=== PATIENT | female | born 1985 | race Caucasian/White ===

== ENCOUNTER 2017-02-14 13:16 | Emergency (ER) | payer SELFPAY ==
[2017-02-14 13:32] VITALS: BP 132/74; PULSE 69; RESP 16; O2SAT 97
--- NOTE | 2017-02-14 13:58 | ED PDOC ---
HPI: Skin/Bite Injury Time Seen by Provider: 02/14/17 13:49 Chief Complaint (Nursing): Breast Problem Chief Complaint (Provider): redness to breast History Per: Patient, [employer] ([place] video softball coach at bedside) Onset/Duration Of Symptoms: Days (x2 weeks) Current Symptoms Are (Timing): Still Present Location Of Injury: Left: Chest (left breast) Additional Complaint(s): Vivian Eugene is a 32 year old female who presents to the emergency department complaining of localized redness to left breast associated with pain and swelling x 2 weeks. She denies any fever or chills. No drainage or bleeding from affected area. Patient has not taken any meds for pain relief. She does not recall any insect bite or injury to affected area. Patient is currently not breast feeding. PMD: None provided. Past Medical History Reviewed: Historical Data, Nursing Documentation, Vital Signs Vital Signs: Last Vital Signs Temp Pulse 69 02/14/17 13:29 Resp 16 02/14/17 13:29 BP 132/74 02/14/17 13:29 Pulse Ox 97 02/14/17 14:12 - Medical History PMH: No Chronic Diseases - Surgical History Surgical History: Hernia Repair - Family History Family History: States: No Known Family Hx - Living Arrangements Living Arrangements: With Family - Social History Current smoker - smoking cessation education provided: No Alcohol: None Drugs: Denies - Home Medications Home Medications: Ambulatory Orders Medication Instructions Recorded Clindamycin [Cleocin] 300 mg PO TID #21 cap 02/14/17 Ibuprofen [Motrin] 600 mg PO Q6 PRN #15 tab 02/14/17 - Allergies Allergies/Adverse Reactions: Allergies Allergy/AdvReac Type Severity Reaction Status Date / Time No Known Allergies Allergy Verified 02/14/17 13:28 Review of Systems ROS Statement: Except As Marked, All Systems Reviewed And Found Negative Constitutional: Negative for: Fever, Chills Skin: Positive for: Other (redness to left breast for 2 weeks) Physical Exam - Reviewed Nursing Documentation Reviewed: Yes Vital Signs Reviewed: Yes - Physical Exam Appears: Positive for: Well, Non-toxic, No Acute Distress Head Exam: Positive for: ATRAUMATIC, NORMAL INSPECTION, NORMOCEPHALIC Skin: Positive for: Normal Color, Warm, Dry. Negative for: Rash Eye Exam: Positive for: Normal appearance Cardiovascular/Chest: Positive for: Regular Rate, Rhythm, Other (Localized cellulitis to left breast at 4:00, No erythematous streaking, minimal tenderness , no active drainage or bleeding, no abscess) Respiratory: Positive for: Normal Breath Sounds. Negative for: Respiratory Distress Extremity: Positive for: Normal ROM. Negative for: Pedal Edema Neurologic/Psych: Positive for: Alert, Oriented - Laboratory Results Urine POC: Negative - ECG O2 Sat by Pulse Oximetry: 97 (RA) Pulse Ox Interpretation: Normal Medical Decision Making Medical Decision Making: Initial Impression: Localized cellulitis to left breast Initial Plan: --Urine Rx clindamycin and motrin given. Advised warm compresses to affected area with espom salts. Patient was instructed to follow up with clinic in 2-3 days for wound re-check or RTED at any time if acutely worse. Scribe Attestation: Documented by Ihsan Hernandez, acting as a scribe for She SANON. Provider Scribe Attestation: All medical record entries made by the Scribe were at my direction and personally dictated by me. I have reviewed the chart and agree that the record accurately reflects my personal performance of the history, physical exam, medical decision making, and the department course for this patient. I have also personally directed, reviewed, and agree with the discharge instructions and disposition. Disposition - Clinical Impression Clinical Impression: Cellulitis of breast - Patient ED Disposition Is Patient to be Admitted: No Counseled Patient/Family Regarding: Diagnosis, Need For Followup, Rx Given - Disposition Referrals: [facility] [Outside] Disposition: Routine/Home Disposition Time: 14:33 Condition: STABLE Additional Instructions: Apply warm compresses to affected area with epsom salts as often as possible. Take rx meds as directed. Follow up in 2-3 days with clinic. Prescriptions: Clindamycin [Cleocin] 300 mg PO TID #21 cap Ibuprofen [Motrin] 600 mg PO Q6 PRN #15 tab PRN Reason: Pain, Moderate (4-7) Instructions: Cellulitis (ED) Forms: Seer ([place]) Print Language: ANDORRAN
== END 2017-02-14 15:16 | disposition home or self-care (01) ==
LOC: H.ER 13:16
DX: L03.319 Cellulitis of trunk, unspecified (principal)